=== PATIENT | male | born 2000 | race American Indian/Alaskan Native ===

== ENCOUNTER 2021-08-24 21:34 | Emergency (ER) | payer MEDICAID ==
[2021-08-24 22:04] VITALS: BP 141/90
--- NOTE | 2021-08-25 00:02 | Emergency Department Report ---
HPI - General Chief Complaint: Extremity Injury, Lower Time Seen by Provider: 08/24/21 23:23 - HPI HPI: MSE 1 The patient is a 21-year-old male present with a chief complaint of bilateral foot pain after stepping on nails. Patient states he began a new job in approximately 1 month ago he stepped on nails while wearing shoes. The patient states he did this foot accidentally. The patient states he was initially okay but over the past week he developed pain in the soles of both feet. Patient denies history of fever. Patient states he received a tetanus shot since the incident. ED Past Medical Hx - Past Medical History Previous Medical History?: No - Surgical History Past Surgical History?: No - Family History Family history: no significant - Social History Smoking Status: Never Smoker Substance Use Type: Marijuana - Medications Home Medications: Home Medications Medication Instructions Recorded Confirmed Last Taken Type Ibuprofen [Motrin 800 MG tab] 800 mg PO Q8HR PRN #20 tablet 08/25/21 Unknown Rx levoFLOXacin [Levaquin] 750 mg PO QDAY #7 tablet 08/25/21 Unknown Rx ED Review of Systems ROS: Stated complaint: INFECTED WOUND Other details as noted in HPI Constitutional: denies: fever Eyes: denies: eye pain ENT: denies: throat pain Respiratory: no symptoms reported Cardiovascular: denies: chest pain Endocrine: no symptoms reported Gastrointestinal: denies: abdominal pain Genitourinary: denies: dysuria Musculoskeletal: myalgia Skin: denies: rash Neurological: denies: headache Physical Exam - Physical Exam Vital Signs: Vital Signs 08/24/21 22:02 Temperature 98.4 F Pulse Rate 63 Respiratory 18 Rate Blood Pressure 141/90 O2 Sat by Pulse 100 Oximetry Physical Exam: GENERAL: The patient is well-developed well-nourished male sitting in chair not appearing to be in acute distress. [] HEENT: Normocephalic. Atraumatic. Extraocular motions are intact. Patient has moist mucous membranes. NECK: Supple. Trachea midline CHEST/LUNGS: There is no respiratory distress noted. HEART/CARDIOVASCULAR: Regular. There is no tachycardia. 2+ DPs bilaterally SKIN: There is a hyperpigmented region to the sole of left foot at the site of the previous puncture wound. No erythema or fluctuance appreciated no drainage appreciated. Unable to visualize location of puncture in the right sole but in the region where the patient states he stepped on the nail there is no erythema or fluctuance. NEURO: The patient is awake, alert, and oriented. The patient is cooperative. The patient has no focal neurologic deficits. The patient has normal speech. GCS 15 MUSCULOSKELETAL: There is no evidence of acute injury. ED Course Vital Signs 08/24/21 22:02 Temperature 98.4 F Pulse Rate 63 Respiratory 18 Rate Blood Pressure 141/90 O2 Sat by Pulse 100 Oximetry ED Medical Decision Making - Lab Data Result diagrams: 08/24/21 23:43 - Differential Diagnosis Puncture wound, cellulitis, Critical care attestation.: If time is entered above; I have spent that time in minutes in the direct care of this critically ill patient, excluding procedure time. ED Disposition Clinical Impression: Puncture wound of left foot, Puncture wound of right foot Disposition: HOME / SELF CARE / HOMELESS Is pt being admited?: No Does the pt Need Aspirin: No Condition: Stable Instructions: Puncture Wound, [id number] Additional Instructions: Return to the emergency department should you develop worsening symptoms, inability to tolerate food or liquids, high fever or any other concerns Prescriptions: levoFLOXacin [Levaquin] 750 mg PO QDAY #7 tablet Ibuprofen [Motrin 800 MG tab] 800 mg PO Q8HR PRN #20 tablet PRN Reason: Pain, Moderate (4-6) Referrals: ALETA HERNANDEZ DPM [Staff Physician] - 3-5 Days (Dr. Hernandez is a fabric coating supervisor (foot doctor). Please follow-up with him for further evaluation) Time of Disposition: 00:35
[2021-08-25 00:18] LABS: Basophils # (Auto) 0.1 K/mm3 (0.0-0.1); Basophils % (Auto) 0.8 % (0.0-1.8); Eosinophils # (Auto) 0.5 K/mm3 (0.0-0.4); Eosinophils % (Auto) 7.4 % (0.0-4.3); Hemoglobin 14.3 gm/dl (11.8-15.2); Lymphocytes # (Auto) 2.4 K/mm3 (1.2-5.4); Lymphocytes % (Auto) 31.9 % (13.4-35.0); Mean Corpuscular HGB Conc 35 % (32-34); Mean Corpuscular Volume 95 fl (84-94); Monocytes # (Auto) 0.7 K/mm3 (0.0-0.8); Monocytes % (Auto) 9.3 % (0.0-7.3); Platelet Count 224 K/mm3 (140-440); Red Blood Count 4.33 M/mm3 (3.65-5.03); Red Cell Distribution Width 13.5 % (13.2-15.2)
== END 2021-08-25 01:02 | disposition home or self-care (01) ==
LOC: EDSEX → ED 21:34
DX: S91.332A Puncture wound without foreign body, left foot, initial encounter (principal); S91.331A Puncture wound without foreign body, right foot, initial encounter; W45.0XXA Nail entering through skin, initial encounter; F12.90 Cannabis use, unspecified, uncomplicated; Y93.89 Activity, other specified; Y92.89 Other specified places as the place of occurrence of the external cause; Y99.8 Other external cause status
CPT/HCPCS: 36415; 85025; 99283